=== PATIENT | male | born 1990 | race African-American/Black ===

== ENCOUNTER 2020-04-25 17:25 | Emergency (ER) | payer MEDICAID, OTHER ==
[~2020-04-25] VITALS: Ht 177.8 cm; Wt 65.8 kg
[2020-04-25 18:23] LABS: Basophils # (auto) 0 10 ^3/uL (0-0.2); Basophils % (auto) 0.3 % (0.0-2.0); Eosinophils # (auto) 0.2 10 ^3/uL (0-0.8); Eosinophils % (auto) 1.7 % (0.0-7.0); Hemoglobin 14.6 g/dL (13.5-17.5); Lymphocytes # (auto) 1.3 10 ^3/uL (0.4-5.4); Mean Corpuscular Hemoglobin 31.1 pg (28.0-32.0); Mean Corpuscular Hgb Conc. 33.9 g/dL (32.0-36.0); Mean Corpuscular Volume 91.7 fL (80.0-100.0); Monocytes # (auto) 0.6 10 ^3/uL (0-1.3); Monocytes % (auto) 5.7 % (0.0-12.0); Neutrophils % (auto) 80.3 % (37.0-80.0); Nucleated Red Blood Cells % 0.1 %; Platelet Count (auto) 146 10^3/uL (140-450); Red Cell Distribution Width 13.3 % (11.8-14.3); White Blood Cell 11.2 10^3/uL (4.4-10.8)
[2020-04-25 18:33] LABS: Albumin 4.2 g/dL (3.4-5.0); Anion Gap 7 (5-15); BUN/Creatinine Ratio 19.3; Blood Urea Nitrogen 17 mg/dL (7-18); Calcium 8.9 mg/dL (8.5-10.1); Carbon Dioxide 24 mmol/L (21-32); Chloride 106 mmol/L (98-107); GFR African American 132 mL/min; GFR Non-African American 109 mL/min; Glucose 107 mg/dL (74-106); Potassium 3.6 mmol/L (3.5-5.1); Sodium 137 mmol/L (136-145)
[2020-04-25 18:45] LABS: Alanine Aminotransferase 14 U/L (16-61); Alkaline Phosphatase 69 U/L (45-117); Aspartate Aminotransferase 11 U/L (15-37); Bilirubin, Total 0.7 mg/dL (0.2-1.0); Total Protein 7.4 g/dL (6.4-8.2)
[2020-04-25] MEDS ORDERED: KETOROLAC TROMETH 30 MG/ML 1ML VIAL IV ONE (20:00)
[2020-04-25] MEDS ORDERED: LORazepam 0.5 MG TAB PO ONE (20:00)
[2020-04-25 21:50] LABS: Alcohol, Urine < 3.0 mg/dL (0-10); Amphetamine Screen, Urine NEGATIVE (NEGATIVE); Barbiturate Scree,Urine NEGATIVE (NEGATIVE); Benzodiazephine Screen, Urine NEGATIVE (NEGATIVE); Cannabinoid Screen, Urine POSITIVE (NEGATIVE); Cocaine Screen, Urine NEGATIVE (NEGATIVE); Opiate Scree,Urine NEGATIVE (NEGATIVE); Phencyclidine Screen, Urine NEGATIVE (NEGATIVE)
[2020-04-25 22:07] VITALS: BP 121/86
== END 2020-04-25 22:26 | disposition home or self-care (01) ==
LOC: ER 17:25 → EDUNIT# 17:25 → EDBD 17:25 → ER 22:26
DX: R07.89 Other chest pain (principal); F41.9 Anxiety disorder, unspecified; M94.0 Chondrocostal junction syndrome [Tietze]
CPT/HCPCS: 36415; 71046; 80053; 80307; 83735; 84484; 85025; 93005; 96374; 99285; J1885

== ENCOUNTER 2021-06-08 12:20 | Emergency (ER) | payer MEDICAID ==
[~2021-06-08] VITALS: Ht 177.8 cm; Wt 65.8 kg
[2021-06-08 20:01] VITALS: BP 144/87
== END 2021-06-08 20:11 | disposition home or self-care (01) ==
LOC: ER 12:20
DX: S29.012A Strain of muscle and tendon of back wall of thorax, initial encounter (principal); M62.838 Other muscle spasm; G89.29 Other chronic pain; M54.50 Low back pain, unspecified; F12.10 Cannabis abuse, uncomplicated; X58.XXXA Exposure to other specified factors, initial encounter; Y93.89 Activity, other specified; Y92.89 Other specified places as the place of occurrence of the external cause; Y99.8 Other external cause status
CPT/HCPCS: 72070; 72100

== ENCOUNTER 2021-11-05 04:10 | Emergency (ER) | payer MEDICAID ==
[~2021-11-05] VITALS: Ht 177.8 cm; Wt 63.0 kg
[2021-11-05 05:38] LABS: Basophils # (auto) 0 10 ^3/uL (0-0.2); Basophils % (auto) 0.5 % (0.0-2.0); Eosinophils # (auto) 0.3 10 ^3/uL (0-0.8); Eosinophils % (auto) 4.2 % (0.0-7.0); Hematocrit 39.2 % (41.0-53.0); Hemoglobin 13.4 g/dL (13.5-17.5); Lymphocytes % (auto) 26.5 % (10.0-50.0); Mean Corpuscular Hgb Conc. 34.2 g/dL (32.0-36.0); Mean Corpuscular Volume 93.4 fL (80.0-100.0); Monocytes # (auto) 0.6 10 ^3/uL (0-1.3); Monocytes % (auto) 8.3 % (0.0-12.0); Neutrophils # (auto) 4.6 10 ^3/uL (1.6-8.6); Neutrophils % (auto) 60.5 % (37.0-80.0); Nucleated Red Blood Cells % 0.1 %; Red Blood Cells 4.19 10^6/uL (4.5-5.90); Red Cell Distribution Width 13.1 % (11.8-14.3); White Blood Cell 7.7 10^3/uL (4.4-10.8)
[2021-11-05 05:59] LABS: Albumin 3.9 g/dL (3.4-5.0); Calcium 8.7 mg/dL (8.5-10.1); Potassium 3.7 mmol/L (3.5-5.1)
[2021-11-05 06:03] LABS: BUN/Creatinine Ratio 14.3; Bilirubin, Total 0.3 mg/dL (0.2-1.0)
[2021-11-05 08:00] VITALS: BP 111/67
== END 2021-11-05 07:51 | disposition home or self-care (01) ==
LOC: ER 04:10
DX: R07.89 Other chest pain (principal); F12.10 Cannabis abuse, uncomplicated
CPT/HCPCS: 36415; 71045; 80053; 84484; 85025; 93005